=== PATIENT | female | born 1940 | race Caucasian/White ===

== ENCOUNTER 2021-06-12 17:56 | Inpatient (IN) ==
[2021-06-12 18:37] LABS: Basophils % 0.3 % (0.0-0.8); Eosinophils # 0.2 10*3/uL (0.0-0.87); Eosinophils % 1.6 % (0.00-10.9); Hematocrit 34.5 VOL% (35.7-47.0); Immature Granulocytes % 0.4 %; Immature Granulocytes Absolute 0.05 #; Lymphocytes # 3.2 10*3/uL (1.4-4.0); Lymphocytes % 26.8 % (21.3-54.2); Mean Corpuscular HGB Conc 31.9 GM/DL (32-36); Mean Corpuscular Volume 90.6 FL (87-102); Mean Platelet Volume 8.4 FL (9.6-12.0); Monocytes % 6.5 % (1.7-12.7); Neutrophils % 64.4 % (38.7-73.9); Platelet Count 543 T/CUMM (130-400); Red Blood Count 3.81 MC/CUMM (3.8-5.5); Red Cell Distribution Width 15.9 % (9.3-17.3); White Blood Count 11.8 T/CUMM (4-12)
[2021-06-12 18:52] LABS: Alanine Aminotransferase 48 U/L (13-56); Albumin 2.4 G/DL (3.4-5.0); Alkaline Phosphatase 150 U/L (45-117); Aspartate Amino Transferase 26 U/L (0-37); Bilirubin,Total < 0.39 MG/DL (0.20-1.00); Blood Urea Nitrogen 18 MG/DL (7-18); Calcium 9.4 MG/DL (8.5-10.1); Carbon Dioxide 32 MMOL/L (21-32); Estimated Glom Filtration Rate 76 ML/MIN; Glucose 97 MG/DL (74-106); Potassium 3.8 MMOL/L (3.5-5.1); Sodium 136 MMOL/L (136-145); Total Protein 7.5 G/DL (6.4-8.2)
[2021-06-12] MEDS: PIPERACILLIN/TAZOBACTAM 3,375 MG in SODIUM CHLORIDE 0.9% 100 ML IV SCH (23:00)
[2021-06-12] MEDS ORDERED: GLUCAGON 1 MG VIAL IM PRN (23:12)
[2021-06-12] MEDS ORDERED: diphenhydrAMINE CAP 25 MG CAPSULE PO PRN (23:12)
[2021-06-12] MEDS ORDERED: hydrALAZINE 20 MG/1 ML VIAL IV PRN (23:12)
[2021-06-12] MEDS ORDERED: ACETAMINOPHEN 325 MG TABLET PO PRN (23:12)
[2021-06-12] MEDS ORDERED: ONDANSETRON 4 MG/2 ML VIAL IV PRN (23:12)
[2021-06-12] MEDS ORDERED: DEXTROSE 50% 25 GM/50 ML VIAL IV PRN (23:12)
[2021-06-12] MEDS ORDERED: NICOTINE 21 MG/24 HR PATCH TRANSDERM PRN (23:12)
[2021-06-12] MEDS ORDERED: guaiFENesin/DM ER 600-30 MG TABLET PO PRN (23:12)
[2021-06-12] MEDS ORDERED: cefTRIAXone 1,000 MG in SODIUM CHLORIDE 0.9% 100 ML IV SCH (23:30)
[2021-06-13] MEDS ORDERED: VANCOMYCIN INJ 750 MG in SODIUM CHLORIDE 0.9% 250 ML IV SCH (03:00)
[2021-06-13 04:23] LABS: Basophils # 0.1 10*3/uL (0.0-0.2); Basophils % 0.6 % (0.0-0.8); Eosinophils # 0.2 10*3/uL (0.0-0.87); Eosinophils % 1.5 % (0.00-10.9); Hematocrit 31.2 VOL% (35.7-47.0); Hemoglobin 9.8 GM/DL (12.0-16.0); Immature Granulocytes % 0.5 %; Immature Granulocytes Absolute 0.05 #; Lymphocytes # 2.5 10*3/uL (1.4-4.0); Mean Corpuscular HGB Conc 31.4 GM/DL (32-36); Mean Corpuscular Volume 90.4 FL (87-102); Mean Platelet Volume 8.6 FL (9.6-12.0); Monocytes % 6.1 % (1.7-12.7); Neutrophils % 67.3 % (38.7-73.9); Platelet Count 485 T/CUMM (130-400); Red Blood Count 3.45 MC/CUMM (3.8-5.5); White Blood Count 10.2 T/CUMM (4-12)
[2021-06-13 05:04] LABS: Calcium 8.9 MG/DL (8.5-10.1); Osmolality,Calculated 271.1 MOS/KG (273-304); Potassium 3.5 MMOL/L (3.5-5.1)
[2021-06-13] MEDS: DEXTROSE 5% NACL 0.9% 1,000 ML IV SCH ×2 (06:52→22:18)
[2021-06-13] MEDS: PIPERACILLIN/TAZOBACTAM 3,375 MG in SODIUM CHLORIDE 0.9% 100 ML IV SCH ×3 (09:18→22:20)
[2021-06-13] MEDS: BISACODYL 5 MG TABLET PO SCH (09:19)
[2021-06-13] MEDS: NITROFURANTOIN MACRO/MONO 100 MG CAPSULE PEG SCH ×2 (09:20→21:00)
[2021-06-13] MEDS: PANTOPRAZOLE 40 MG TABLET PO SCH (09:20)
[2021-06-13] MEDS: ASCORBIC ACID 500 MG TABLET PEG SCH (09:20)
[2021-06-13] MEDS: metroNIDAZOLE INJ 500 MG/100 ML PREMIX IV SCH ×2 (17:08→23:30)
[2021-06-13] MEDS: ZALEPLON 5 MG CAPSULE PO PRN (22:19)
[2021-06-13] MEDS: SERTRALINE 25 MG TABLET PEG SCH (22:19)
[2021-06-13] MEDS: PHENYLEPHRINE 0.25% SUPP RECTAL SCH (22:20)
[2021-06-13] MEDS: MORPHINE 2 MG/1 ML SYRINGE IV PRN (22:24)
[2021-06-14 06:49] LABS: Basophils % 0.5 % (0.0-0.8); Eosinophils # 0.2 10*3/uL (0.0-0.87); Eosinophils % 2.9 % (0.00-10.9); Hematocrit 29.9 VOL% (35.7-47.0); Hemoglobin 9.2 GM/DL (12.0-16.0); Immature Granulocytes % 0.3 %; Immature Granulocytes Absolute 0.02 #; Lymphocytes % 26.2 % (21.3-54.2); Mean Corpuscular HGB Conc 30.8 GM/DL (32-36); Mean Corpuscular Volume 92.9 FL (87-102); Mean Platelet Volume 8.7 FL (9.6-12.0); Monocytes % 6.1 % (1.7-12.7); Platelet Count 407 T/CUMM (130-400); Red Blood Count 3.22 MC/CUMM (3.8-5.5); Red Cell Distribution Width 15.9 % (9.3-17.3); White Blood Count 7.7 T/CUMM (4-12)
[2021-06-14 07:05] LABS: Potassium 3.2 MMOL/L (3.5-5.1)
[2021-06-14] MEDS: metroNIDAZOLE INJ 500 MG/100 ML PREMIX IV SCH ×3 (08:28→23:30)
[2021-06-14] MEDS: PIPERACILLIN/TAZOBACTAM 3,375 MG in SODIUM CHLORIDE 0.9% 100 ML IV SCH ×3 (08:29→22:00)
[2021-06-14] MEDS: PANTOPRAZOLE 40 MG TABLET PO SCH (08:33)
[2021-06-14] MEDS: BISACODYL 5 MG TABLET PO SCH (08:33)
[2021-06-14] MEDS: PHENYLEPHRINE 0.25% SUPP RECTAL SCH ×2 (08:33→21:00)
[2021-06-14] MEDS: ASCORBIC ACID 500 MG TABLET PEG SCH (08:33)
[2021-06-14] MEDS ORDERED: VANCOMYCIN INJ 1,000 MG in SODIUM CHLORIDE 0.9% 250 ML IV SCH (14:30)
[2021-06-14] MEDS: DEXTROSE 5% NACL 0.9% 1,000 ML IV SCH (16:57)
[2021-06-14] MEDS: POLYETHYLENE GLYCOL POWDER 17 GM PACK PO SCH (16:58)
[2021-06-14] MEDS: VANCOMYCIN INJ 500 MG in SODIUM CHLORIDE 0.9% 100 ML IV SCH (17:00)
[2021-06-14] MEDS: SERTRALINE 25 MG TABLET PEG SCH (22:00)
[2021-06-15] MEDS: VANCOMYCIN INJ 500 MG in SODIUM CHLORIDE 0.9% 100 ML IV SCH (05:00)
[2021-06-15] MEDS: DEXTROSE 5% NACL 0.9% 1,000 ML IV SCH ×2 (05:13→13:56)
[2021-06-15 05:56] LABS: Basophils % 0.4 % (0.0-0.8); Eosinophils # 0.3 10*3/uL (0.0-0.87); Eosinophils % 3.5 % (0.00-10.9); Hematocrit 29.3 VOL% (35.7-47.0); Hemoglobin 9.1 GM/DL (12.0-16.0); Immature Granulocytes % 0.1 %; Immature Granulocytes Absolute 0.01 #; Lymphocytes # 2.3 10*3/uL (1.4-4.0); Lymphocytes % 29.9 % (21.3-54.2); Mean Corpuscular HGB Conc 31.1 GM/DL (32-36); Mean Platelet Volume 8.8 FL (9.6-12.0); Neutrophils % 60.1 % (38.7-73.9); Platelet Count 377 T/CUMM (130-400); Red Blood Count 3.15 MC/CUMM (3.8-5.5); Red Cell Distribution Width 16.2 % (9.3-17.3); White Blood Count 7.8 T/CUMM (4-12)
[2021-06-15 06:35] LABS: Calcium 8.2 MG/DL (8.5-10.1); Osmolality,Calculated 281.3 MOS/KG (273-304); Potassium 3.2 MMOL/L (3.5-5.1)
[2021-06-15] MEDS ORDERED: metroNIDAZOLE INJ 500 MG/100 ML PREMIX IV ONE (09:30)
[2021-06-15] MEDS: POLYETHYLENE GLYCOL POWDER 17 GM PACK PO SCH (09:51)
[2021-06-15] MEDS: PANTOPRAZOLE 40 MG TABLET PO SCH (09:51)
[2021-06-15] MEDS: BISACODYL 5 MG TABLET PO SCH (09:52)
[2021-06-15] MEDS: ASCORBIC ACID 500 MG TABLET PEG SCH (09:52)
[2021-06-15] MEDS: PIPERACILLIN/TAZOBACTAM 3,375 MG in SODIUM CHLORIDE 0.9% 100 ML IV SCH ×3 (09:52→22:47)
[2021-06-15] MEDS: PHENYLEPHRINE 0.25% SUPP RECTAL SCH ×2 (09:53→21:35)
[2021-06-15] MEDS: metroNIDAZOLE INJ 500 MG/100 ML PREMIX IV SCH (11:10)
[2021-06-15] MEDS: POTASSIUM CHLORIDE 20 MEQ TABLET PO PRN ×3 (13:56→22:48)
[2021-06-15] MEDS: DESITIN 4OZ/NYSTATIN 15 GRAM MIXTURE PASTE TOP SCH ×2 (15:17→21:49)
[2021-06-15] MEDS ORDERED: ALBUTEROL/IPRATROPIUM 3 ML NEB RESP TX PRN (15:47)
[2021-06-15] MEDS ORDERED: LIDOCAINE 2% TOP JELLY 5 ML TUBE TOP ONE (15:51)
[2021-06-15] MEDS: SODIUM CHLORIDE 0.9% 1,000 ML IV SCH (17:19)
[2021-06-15] MEDS: SERTRALINE 25 MG TABLET PEG SCH (21:34)
[2021-06-15] MEDS: ZALEPLON 5 MG CAPSULE PO PRN (21:34)
[2021-06-15] MEDS: MORPHINE 2 MG/1 ML SYRINGE IV PRN (21:43)
[2021-06-16] MEDS: SODIUM CHLORIDE 0.9% 1,000 ML IV SCH ×2 (05:54→21:28)
[2021-06-16 06:53] LABS: Basophils % 0.4 % (0.0-0.8); Eosinophils # 0.2 10*3/uL (0.0-0.87); Hematocrit 27.9 VOL% (35.7-47.0); Hemoglobin 8.4 GM/DL (12.0-16.0); Immature Granulocytes % 0.4 %; Immature Granulocytes Absolute 0.03 #; Lymphocytes # 1.9 10*3/uL (1.4-4.0); Lymphocytes % 23.5 % (21.3-54.2); Mean Corpuscular HGB Conc 30.1 GM/DL (32-36); Mean Platelet Volume 9.2 FL (9.6-12.0); Monocytes % 7.4 % (1.7-12.7); Neutrophils % 65.3 % (38.7-73.9); Platelet Count 349 T/CUMM (130-400); Red Cell Distribution Width 16.4 % (9.3-17.3); White Blood Count 8.1 T/CUMM (4-12)
[2021-06-16 07:14] LABS: Osmolality,Calculated 274.7 MOS/KG (273-304); Potassium 3.8 MMOL/L (3.5-5.1)
[2021-06-16] MEDS: PANTOPRAZOLE 40 MG TABLET PO SCH (08:50)
[2021-06-16] MEDS: PHENYLEPHRINE 0.25% SUPP RECTAL SCH ×3 (08:50→21:29)
[2021-06-16] MEDS: PIPERACILLIN/TAZOBACTAM 3,375 MG in SODIUM CHLORIDE 0.9% 100 ML IV SCH ×3 (08:50→22:27)
[2021-06-16] MEDS: BISACODYL 5 MG TABLET PO SCH (08:50)
[2021-06-16] MEDS: DESITIN 4OZ/NYSTATIN 15 GRAM MIXTURE PASTE TOP SCH ×2 (08:51→21:29)
[2021-06-16] MEDS: POLYETHYLENE GLYCOL POWDER 17 GM PACK PO SCH (08:51)
[2021-06-16] MEDS: ASCORBIC ACID 500 MG TABLET PEG SCH (08:51)
[2021-06-16 10:04] LABS: % Iron Saturation 14.5 % (18-50); Ferritin 259.6 ng/mL (8-252)
[2021-06-16 12:01] LABS: Folate 6.79 NG/ML (5.38-24.0)
[2021-06-16] MEDS: ZALEPLON 5 MG CAPSULE PO PRN (21:27)
[2021-06-16] MEDS: SERTRALINE 25 MG TABLET PEG SCH (21:28)
[2021-06-17] MEDS: MORPHINE 2 MG/1 ML SYRINGE IV PRN (02:49)
[2021-06-17] MEDS: PIPERACILLIN/TAZOBACTAM 3,375 MG in SODIUM CHLORIDE 0.9% 100 ML IV SCH (06:04)
[2021-06-17] MEDS: BISACODYL 5 MG TABLET PO SCH (10:03)
[2021-06-17] MEDS: POLYETHYLENE GLYCOL POWDER 17 GM PACK PO SCH (10:03)
[2021-06-17] MEDS: ASCORBIC ACID 500 MG TABLET PEG SCH (10:03)
[2021-06-17] MEDS: PANTOPRAZOLE 40 MG TABLET PO SCH (10:03)
[2021-06-17] MEDS: PHENYLEPHRINE 0.25% SUPP RECTAL SCH (10:04)
[2021-06-17] MEDS: DESITIN 4OZ/NYSTATIN 15 GRAM MIXTURE PASTE TOP SCH (10:05)
[2021-06-17] MEDS ORDERED: ALPRAZolam 0.25 MG TABLET PO ONE (11:00)
[2021-06-17] MEDS: SODIUM CHLORIDE 0.9% 1,000 ML IV SCH (11:06)
[2021-06-17 12:04] VITALS: BP 112/52
== END 2021-06-17 12:19 | DRG 593 ==
LOC: EDBD → EDUNIT# → N.ED 17:56 → SUATTDRO 23:12 → N.EDINP 23:12 → N.5E 06-13 11:14
PROVIDERS: ADMIT Internal Medicine; ATTEND Internal Medicine

== ENCOUNTER 2021-10-12 17:23 | Inpatient (IN) ==
[2021-10-12 20:43] LABS: Basophils # 0.1 10*3/uL (0.0-0.2); Basophils % 0.3 % (0.0-0.8); Eosinophils # 0.3 10*3/uL (0.0-0.87); Eosinophils % 1.1 % (0.00-10.9); Hematocrit 32.4 VOL% (35.7-47.0); Hemoglobin 9.7 GM/DL (12.0-16.0); Immature Granulocytes % 1.2 %; Immature Granulocytes Absolute 0.36 #; Lymphocytes # 2.5 10*3/uL (1.4-4.0); Lymphocytes % 8.4 % (21.3-54.2); Mean Corpuscular HGB Conc 29.9 GM/DL (32-36); Mean Corpuscular Volume 89.5 FL (87-102); Mean Platelet Volume 8.8 FL (9.6-12.0); Monocytes % 3.6 % (1.7-12.7); Neutrophils % 85.4 % (38.7-73.9); Platelet Count 724 T/CUMM (130-400); Red Blood Count 3.62 MC/CUMM (3.8-5.5); White Blood Count 29.7 T/CUMM (4-12)
[2021-10-12] MEDS ORDERED: SODIUM CHLORIDE 0.9% 1,000 ML IV STA ×2 (20:47→21:14)
[2021-10-12] MEDS ORDERED: ONDANSETRON 4 MG/2 ML VIAL IV STA (20:47)
[2021-10-12] MEDS ORDERED: fentaNYL 100 MCG/2 ML VIAL IV STA (20:48)
[2021-10-12 20:53] LABS: Albumin 1.8 G/DL (3.4-5.0); Bilirubin,Total 0.5 MG/DL (0.20-1.00); Calcium 8.5 MG/DL (8.5-10.1); Osmolality,Calculated 279.1 MOS/KG (273-304); Potassium 4.2 MMOL/L (3.5-5.1)
[2021-10-12 21:06] LABS: Partial Thromboplastin Time 28.8 SECS (23.8-32.1)
[2021-10-12 21:22] LABS: Bacteria,Urine Occasional /HPF (Few); Hyaline Casts,Urine 3 /LPF (0-3); Mucus,Urine Occasional /LPF (Occasional); RBC,Urine 7 /HPF (0-4)
[2021-10-12 21:24] LABS: Urine Color Yellow (Yellow)
[2021-10-12 21:25] LABS: Bilirubin,Urine Negative (Negative); Blood, Urine Negative (Negative); Glucose,Urine (UA) Negative (Negative); Ketones,Urine Negative (Negative); Nitrite,Urine Positive (Negative); Protein,Urine Negative (Negative); Urine Appearance SL CLOUDY (Clear); Urine Specific Gravity 1.015 (1.001-1.035)
[2021-10-12] MEDS ORDERED: cefTRIAXone 1,000 MG in SODIUM CHLORIDE 0.9% 100 ML IV STA (21:29)
[2021-10-12 22:08] LABS: Lymphocytes 8 % (20-55); Platelet Estimate Increased; Segmented Neutrophils 89 % (50-85); Total Cells Counted 100
[2021-10-12] MEDS ORDERED: diphenhydrAMINE 50 MG/1 ML VIAL IV STA (22:11)
[2021-10-12] MEDS ORDERED: SKIN HEALING OINT (AQUAPHOR) 50 GM TUBE TOP PRN (22:11)
[2021-10-12] MEDS ORDERED: HYDROCORTISONE 1% CREAM 28 GM TUBE TOP PRN (22:11)
[2021-10-12] MEDS ORDERED: methylPREDNISolone SOD SUC 125 MG/2 ML VIAL IV STA (22:11)
[2021-10-12] MEDS ORDERED: diphenhydrAMINE CAP 25 MG CAPSULE PO PRN (22:11)
[2021-10-12] MEDS ORDERED: FAMOTIDINE 20 MG/2 ML VIAL IV STA (22:11)
[2021-10-12] MEDS ORDERED: GLUCAGON 1 MG VIAL IM PRN (22:14)
[2021-10-12] MEDS ORDERED: MEPERIDINE 25 MG/1 ML VIAL IV PRN (22:14)
[2021-10-12] MEDS ORDERED: ONDANSETRON 4 MG/2 ML VIAL IV PRN (22:14)
[2021-10-12] MEDS ORDERED: DEXTROSE 10% 250 ML BAG IV PRN (22:14)
[2021-10-13] MEDS: SODIUM CHLORIDE 0.9% 1,000 ML IV SCH ×3 (04:40→20:45)
[2021-10-13 06:06] LABS: Basophils % 0.1 % (0.0-0.8); Hematocrit 30.5 VOL% (35.7-47.0); Hemoglobin 9.1 GM/DL (12.0-16.0); Immature Granulocytes % 1.1 %; Immature Granulocytes Absolute 0.25 #; Lymphocytes # 1.1 10*3/uL (1.4-4.0); Lymphocytes % 5.1 % (21.3-54.2); Mean Corpuscular HGB Conc 29.8 GM/DL (32-36); Mean Platelet Volume 8.9 FL (9.6-12.0); Monocytes % 0.2 % (1.7-12.7); Neutrophils % 93.5 % (38.7-73.9); Platelet Count 570 T/CUMM (130-400); Red Blood Count 3.35 MC/CUMM (3.8-5.5)
[2021-10-13 06:16] LABS: Albumin 1.5 G/DL (3.4-5.0); Bilirubin,Total 1.4 MG/DL (0.20-1.00); Calcium 7.9 MG/DL (8.5-10.1); Osmolality,Calculated 284.4 MOS/KG (273-304); Potassium 4.3 MMOL/L (3.5-5.1); Total Protein 5.3 G/DL (6.4-8.2)
[2021-10-13 06:28] LABS: Band Neutrophils 1 % (0-10); Hypochromia 1+; Lymphocytes 1 % (20-55); Microcytosis 1+; Polychromasia Slight; Segmented Neutrophils 97 % (50-85); Total Cells Counted 100
[2021-10-13] MEDS: FAMOTIDINE 20 MG TABLET PO SCH ×2 (10:02→20:45)
[2021-10-13] MEDS: predniSONE 20 MG TABLET PO SCH ×2 (10:03→20:45)
[2021-10-13] MEDS: INSULIN REGULAR 100 UNIT/ML SUBCUT SCH ×3 (10:04→19:05)
[2021-10-13] MEDS: SODIUM HYPOCHLORITE 0.25% IRRIG 473 ML BOTTLE TOP SCH (19:05)
[2021-10-13] MEDS: cefTRIAXone 1,000 MG in SODIUM CHLORIDE 0.9% 100 ML IV SCH (20:44)
[2021-10-14] MEDS: INSULIN REGULAR 100 UNIT/ML SUBCUT SCH ×5 (01:47→21:31)
[2021-10-14 06:25] LABS: Basophils % 0.1 % (0.0-0.8); Hematocrit 28.7 VOL% (35.7-47.0); Hemoglobin 8.3 GM/DL (12.0-16.0); Immature Granulocytes % 1.3 %; Immature Granulocytes Absolute 0.28 #; Lymphocytes # 1.7 10*3/uL (1.4-4.0); Lymphocytes % 7.7 % (21.3-54.2); Mean Corpuscular HGB Conc 28.9 GM/DL (32-36); Mean Corpuscular Volume 93.8 FL (87-102); Mean Platelet Volume 9.3 FL (9.6-12.0); Monocytes % 3.3 % (1.7-12.7); Neutrophils % 87.6 % (38.7-73.9); Platelet Count 545 T/CUMM (130-400); Red Blood Count 3.06 MC/CUMM (3.8-5.5); Red Cell Distribution Width 19.5 % (9.3-17.3); White Blood Count 22.1 T/CUMM (4-12)
[2021-10-14 06:36] LABS: Albumin 1.4 G/DL (3.4-5.0); Bilirubin,Total 0.6 MG/DL (0.20-1.00); Calcium 7.8 MG/DL (8.5-10.1); Potassium 3.5 MMOL/L (3.5-5.1)
[2021-10-14 06:47] LABS: Band Neutrophils 1 % (0-10); Hypochromia 1+; Lymphocytes 8 % (20-55); Microcytosis 1+; Platelet Estimate Adequate; Segmented Neutrophils 90 % (50-85); Total Cells Counted 100
[2021-10-14] MEDS: predniSONE 20 MG TABLET PO SCH ×2 (09:07→22:09)
[2021-10-14] MEDS: FAMOTIDINE 20 MG TABLET PO SCH (09:07)
[2021-10-14] MEDS: SODIUM HYPOCHLORITE 0.25% IRRIG 473 ML BOTTLE TOP SCH (18:26)
[2021-10-14] MEDS: CETIRIZINE 10 MG TABLET PO SCH (18:26)
[2021-10-14] MEDS: cefTRIAXone 1,000 MG in SODIUM CHLORIDE 0.9% 100 ML IV SCH (22:10)
[2021-10-14] MEDS: MORPHINE 4 MG/1 ML VIAL IV PRN (22:47)
[2021-10-15] MEDS: MORPHINE 4 MG/1 ML VIAL IV PRN (06:12)
[2021-10-15 06:50] LABS: Alanine Aminotransferase 56 U/L (13-56); Albumin 1.5 G/DL (3.4-5.0); Alkaline Phosphatase 283 U/L (45-117); Aspartate Amino Transferase 21 U/L (0-37); Bilirubin,Total < 0.39 MG/DL (0.20-1.00); Blood Urea Nitrogen 12 MG/DL (7-18); Calcium 7.7 MG/DL (8.5-10.1); Carbon Dioxide 26 MMOL/L (21-32); Estimated Glom Filtration Rate 108 ML/MIN; Glucose 87 MG/DL (74-106); Osmolality,Calculated 277.4 MOS/KG (273-304); Potassium 3.2 MMOL/L (3.5-5.1); Sodium 140 MMOL/L (136-145); Total Protein 5.2 G/DL (6.4-8.2)
[2021-10-15 06:57] LABS: Basophils % 0.1 % (0.0-0.8); Eosinophils % 0.1 % (0.00-10.9); Hemoglobin 9.8 GM/DL (12.0-16.0); Immature Granulocytes % 0.7 %; Immature Granulocytes Absolute 0.14 #; Lymphocytes # 1.8 10*3/uL (1.4-4.0); Lymphocytes % 9.5 % (21.3-54.2); Mean Corpuscular HGB Conc 29.7 GM/DL (32-36); Mean Corpuscular Volume 92.7 FL (87-102); Mean Platelet Volume 9.1 FL (9.6-12.0); Monocytes % 2.9 % (1.7-12.7); Neutrophils % 86.7 % (38.7-73.9); Platelet Count 564 T/CUMM (130-400); Red Blood Count 3.56 MC/CUMM (3.8-5.5); White Blood Count 18.7 T/CUMM (4-12)
[2021-10-15] MEDS: CETIRIZINE 10 MG TABLET PO SCH (09:51)
[2021-10-15] MEDS: predniSONE 20 MG TABLET PO SCH (09:51)
[2021-10-15] MEDS: INSULIN REGULAR 100 UNIT/ML SUBCUT SCH ×2 (09:51→14:09)
[2021-10-15] MEDS ORDERED: POTASSIUM CHLORIDE 20 MEQ TABLET PO ONE (13:00)
[2021-10-15] MEDS ORDERED: ASCORBIC ACID 500 MG TABLET PO SCH (13:00)
[2021-10-15] MEDS: SODIUM HYPOCHLORITE 0.25% IRRIG 473 ML BOTTLE TOP SCH (14:39)
[2021-10-15 16:02] VITALS: BP 124/57
== END 2021-10-15 15:53 | DRG 915 ==
LOC: EDUNIT# → N.ED 17:23 → N.EDINP 22:14 → N.5E 23:58
PROVIDERS: ADMIT Hospitalist; ATTEND Hospitalist